=== PATIENT | female | born 1940 | race Caucasian/White ===

== ENCOUNTER → 2017-07-08 | Outpatient (CLI) | payer MEDICARE, BC ==
--- NOTE | 2017-07-08 13:58 | RADRPT ---
PROCEDURE: Ultrasound of the bilateral lower extremity venous system. CLINICAL INDICATION: Bilateral leg pain and swelling, deep venous thrombosis TECHNIQUE: Wayne scale with and without compression, color doppler, spectral doppler of the venous system of the bilateral lower extremities was performed. Venous augmentation maneuvers were utilized . COMPARISON: No prior studies are available for comparison. FINDINGS: RIGHT: Common femoral vein: Patent. Femoral vein: Patent. Popliteal vein: Patent. Calf veins: Patent. No soft tissue abnormalities are identified. LEFT: Common femoral vein: Patent. Femoral vein: Patent. Popliteal vein: Patent. Calf veins: Patent. No soft tissue abnormalities are identified. IMPRESSION: No evidence of a deep vein thrombosis within the bilateral lower extremities. RPTAT: AADD .Rommel Mari MD, MD Date Time Electronically viewed and signed by .Rommel Mari MD, on 07/08/2017 13:58 .B/
== END | disposition home or self-care (01) ==
LOC: VAS 12:44
PROVIDERS: ATTEND Internal Medicine
DX: R06.02 Shortness of breath (principal); R60.0 Localized edema
CPT/HCPCS: 93970